=== PATIENT | female | born 1985 | race Asian ===

== ENCOUNTER 2018-03-29 08:30 | Day surgery (SDC) | payer OTHER ==
[2018-03-29] MEDS ORDERED: Ringers Lactate 1,000 ML IV ONE (08:56)
[2018-03-29 09:05] LABS: Specific Gravity 1.015 (1.005-1.030)
[2018-03-29] MEDS ORDERED: MIDAZOLAM HCL 2 MG/2 ML INJ ONE (09:40)
[2018-03-29] MEDS ORDERED: ROCURONIUM 50 MG/5 ML VIAL IV ONE (09:40)
[2018-03-29] MEDS ORDERED: PROPOFOL 200 MG/20 ML VIAL IV ONE (09:40)
[2018-03-29] MEDS ORDERED: FENTANYL CITR 100 MCG/2 ML ONE (09:41)
[2018-03-29] MEDS ORDERED: BUPIVACA 0.5%/EPI 0.0005%/PF 30 ML VIAL ONE (09:52)
[2018-03-29] MEDS ORDERED: DEXAMETHASONE 10 MG/ML VIAL ONE (10:46)
[2018-03-29] MEDS ORDERED: ONDANSETRON HCL 40 MG/20 ML VIAL ONE (10:47)
[2018-03-29] MEDS ORDERED: SUCCINYLCHOLINE 20 MG/ML (10 ML) IV ONE (10:48)
[2018-03-29] MEDS ORDERED: EPINEPHRINE/PF 1 MG/ML AMP ONE (11:36)
--- NOTE | 2018-03-29 11:47 | P.OP ---
Pre-Op Diagnosis: Chronic tonsillitis Post-Op Diagnosis: Sleep disordered breathing Procedure: Tonsillectomy Anesthesia: Other (GA via ETT) Fluids/ Blood products: Other (crystalloid 750ml) Estimated blood loss: Other (< 5ml) Specimen: Other (B tonsils) Complications: None Implants: None Indication: Patient persistent issues in spite of good medical management. Details of Operation: The patient was brought to the operating room and placed under general anesthesia via endotracheal tube. The head of bed was turned 90 degrees. A Shoulder roll was placed and the neck extended. A head drape was applied. The McIvor mouth gag was placed and suspended from the Cesar stand. The oxygen concentrate was confirmed with the supervisor fiberglass boat assembly and was less than forty percent. Weight-based dexamethasone was administered by the supervisor fiberglass boat assembly. The soft palate was palpated and there was no submucous cleft. A red rubber catheter was placed in the nose and secured to retract the soft palate. The tonsils were noted to be small, cryptic, chronically inflammed. The left tonsil was grasped with a straight Allis clamp. The bovie electocautery was used to incision the mucosa over the anterior pillar and identify the tonsillar capsule. The tonsil was dissected using cautery and blunt dissection until free from soft tissue attachments. A tonsil ball was placed to aid hemostasis. The right tonsil was removed in a similar manner. The tonsillar fossae were injected with 0.5% Marcaine with epinephrine. A total of 2.5 mL was used. A Salum sump orogastric tube was used to decompress the stomach. The red rubber catheter was removed and used to suction the nasopharynx and nasal cavity. The mouth gag was removed; there was no evidence of injury to the lips, teeth or tongue. The mandible was mobile. Disposition: The patient was then awakened from anesthesia and taken to the recovery room in stable condition.
[2018-03-29] MEDS: MEPERIDINE HCL 50 MG/ML AMP ONE ×2 (12:19→12:29)
[2018-03-29] MEDS ORDERED: PROMETHAZINE 25 MG/ML VIAL ONE (12:20)
[2018-03-29 16:45] VITALS: BP 102/66; TEMP 97.6; O2SAT 99
== END 2018-03-29 15:38 | disposition home or self-care (01) ==
LOC: OR 08:30
PROVIDERS: ATTEND Otolaryngology
PROC: 0CTPXZZ Resection of Tonsils, External Approach (ICD-10-PCS; principal; 2018-03-29 10:30)
DX: J35.01 Chronic tonsillitis (principal); G47.8 Other sleep disorders
CPT/HCPCS: 81025; 88304; J0171; J0330; J1100; J2175; J2250; J2405; J2550; J3010